=== PATIENT | male | born 1985 | race Caucasian/White ===

== ENCOUNTER 2020-11-26 23:04 | Emergency (ER) | payer OTHER ==
[~2020-11-26 23:04] MED LIST: BACTROBAN OINT22 GM EXT; IBUPROFEN600 MG PO; LODINE CAP 300300 MG PO; ROBITUSSIN100 MG/51 PO; TESSALON PERLE100 MG PO; ZYRTEC10 M3 PO
[2020-11-27 03:30] LABS: HEMOGLOBIN 15.5 gm/dl (14.0-17.5); RED BLOOD COUNT 5.38 M/UL (4.20-5.50); WHITE BLOOD COUNT 8.7 K/UL (4.5-11.0)
[2020-11-27 03:49] LABS: BUN/CREATININE RATIO 14 (0-10)
[2020-11-27] MEDS ORDERED: NAPROSYN500 MG PO (04:33)
[2020-11-29 19:08] LABS: CHLAMYDIA TRACHOMATIS, NAA Negative (Negative); NEISSERIA GONORRHOEAE, NAA Negative (Negative)
== END 2020-11-27 04:45 | disposition home or self-care (01) ==
LOC: ER1 23:04
PROVIDERS: Physician Assistant
DX: N50.811 Right testicular pain (principal); N50.812 Left testicular pain; K76.0 Fatty (change of) liver, not elsewhere classified; R79.89 Other specified abnormal findings of blood chemistry; I10 Essential (primary) hypertension; Z90.49 Acquired absence of other specified parts of digestive tract; Z88.0 Allergy status to penicillin; F17.210 Nicotine dependence, cigarettes, uncomplicated
CPT/HCPCS: 76870; 80053; 81001; 83690; 85025; 96374; 99284; J1885; Q9967